=== PATIENT | female | born 1990 ===

== ENCOUNTER → 2023-06-27 | Outpatient (CLI) | payer SELFPAY | END | disposition home or self-care (01) | LOC: LAB SHORT 18:47 → LAB 18:47 | DX: R30.9 Painful micturition, unspecified (principal) | CPT/HCPCS: 87077; 87086; 87186 ==

== ENCOUNTER → 2023-12-05 | Outpatient (CLI) | payer OTHER ==
[2023-12-05 12:06] LABS: Source, Urine Clean Catch
[2023-12-05 15:00] LABS: Appearance, Urine Hazy (Clear); Bilirubin, Urine Neg (Neg); Blood, Urine Neg (Neg); Color, Urine Yellow (P-Yellow); Glucose Qualitative, Urine Neg (Neg); Ketones, Urine Neg (Neg); Leukocyte Esterase, Urine 2+ (Neg); Nitrite, Urine Neg (Neg); Protein, Urine 1+ (Neg); Urobilinogen, Urine NORM (Normal)
[2023-12-05 15:18] LABS: BASOPHILS ABSOLUTE AUTO 0.03 K/mm3 (0.00-0.23); BASOPHILS PERCENT AUTO 0 % (0-2); EOSINOPHILS ABSOLUTE AUTO 0.13 K/mm3 (0.00-0.68); EOSINOPHILS PERCENT AUTO 1 % (0-6); Hematocrit 33.9 % (33.0-51.0); Hemoglobin 11.2 g/dL (11.5-16.0); IMMATURE GRAN ABSOLUTE AUTO 0.04 K/mm3 (0.00-0.10); IMMATURE GRAN PERCENT AUTO 0 % (0-1); LYMPHOCYTES ABSOLUTE AUTO 1.77 K/mm3 (0.84-5.20); LYMPHOCYTES PERCENT AUTO 19 % (21-46); MONOCYTES ABSOLUTE AUTO 0.38 K/mm3 (0.16-1.47); MONOCYTES PERCENT AUTO 4 % (4-13); Mean Corpuscular HGB 30.4 pg (26.0-34.0); Mean Corpuscular Volume 92 fL (80-100); Mean Platelet Volume 12.2 fL (9.1-12.4); NEUTROPHILS PERCENT AUTO 75 % (41-73); Platelet Count 161 K/mm3 (150-400); RDW Coefficient Variation 12.6 % (11.7-14.2); RDW Standard Deviation 41.3 fL (35.1-46.3); Red Blood Cell Count 3.69 M/mm3 (3.80-5.20); White Blood Cell Count 9.25 K/mm3 (4.00-11.30)
[2023-12-05 15:30] LABS: Amorphous Light (0-Heavy); Bacteria Mod /hpf; Squamous Epithelial Cells Few /hpf (Few)
[2023-12-05 15:31] LABS: Mucus Light (0-Heavy)
[2023-12-06 20:08] LABS: HEPATITIS C AB CIA INTERP Negative (Negative); HEPATITIS C ANTIBODY CIA INDEX 0.09 IV
[2023-12-07 11:25] LABS: HIV 1,2 COMBO ANTIGEN/ANTIBODY Negative (Negative)
[2023-12-07 12:46] LABS: HEPATITIS B SURFACE ANTIGEN Negative (Negative)
== END | disposition home or self-care (01) ==
LOC: LAB 12:04 → LAB SHORT 12:04
PROVIDERS: Registered Nurse Community Health
DX: Z34.91 Encounter for supervision of normal pregnancy, unspecified, first trimester (principal)
CPT/HCPCS: 81001; 84443; 86803; 87086; 87340; 87389

== ENCOUNTER → 2023-12-13 | Outpatient (CLI) | payer OTHER ==
[2023-12-13 18:46] LABS: Hematocrit 33.1 % (33.0-51.0); Hemoglobin 10.8 g/dL (11.5-16.0)
[2023-12-16 19:43] LABS: APTIMA MEDIA TYPE Urine; C. TRACHOMATIS BY TMA Negative (Negative); N. GONORRHOEAE BY TMA Negative (Negative); SPECIMEN SOURCE Urine
== END ==
LOC: LAB SHORT 17:15 → LAB 17:15
PROVIDERS: Registered Nurse Community Health
DX: O09.32 Supervision of pregnancy with insufficient antenatal care, second trimester (principal); Z3A.00 Weeks of gestation of pregnancy not specified
CPT/HCPCS: 82950; 85014; 85018; 87491; 87591

== ENCOUNTER → 2024-02-20 | Outpatient (CLI) | payer OTHER ==
[~2024-02-20] MED LIST: PANT20 PO; PRENATAL TABLE1 EAC2 PO
== END | disposition home or self-care (01) ==
LOC: LAB SHORT 17:42 → LAB 17:42
DX: O09.523 Supervision of elderly multigravida, third trimester (principal)
CPT/HCPCS: 87081; 87150

== ENCOUNTER 2024-03-01 12:35 | Inpatient (IN) | payer OTHER ==
[2024-03-01] VITALS (11 sets, daily range): BP systolic 115–149; BP diastolic 68–82
[~2024-03-01] VITALS: Ht 162.6 cm; Wt 71.2 kg
[2024-03-01] MEDS ORDERED: Methylergonovine Maleate 0.2MG / ML 1ML Amp ONE (12:47)
[2024-03-01] MEDS ORDERED: LR Oxytocin 20 Units 1,000 ML IV SCH ×2 (13:05→14:10)
[2024-03-01] MEDS ORDERED: Methylergonovine Maleate 0.2MG / ML 1ML Amp IM PRN ×2 (13:05→14:05)
[2024-03-01] MEDS ORDERED: Benzocaine Topical Anesthetic Spray 60GM TOP PRN ×2 (13:10→14:15)
[2024-03-01] MEDS ORDERED: Acetaminophen 325 MG TABLET PO PRN ×2 (13:10→14:10)
[2024-03-01] MEDS ORDERED: Misoprostol 200 MCG Tab PR PRN ×2 (13:10→14:05)
[2024-03-01] MEDS ORDERED: Docusate Sodium 100 MG Cap PO PRN ×2 (13:10→14:10)
[2024-03-01] MEDS ORDERED: Lactated Ringer's 1,000 ML IV SCH ×2 (13:10→14:10)
[2024-03-01] MEDS ORDERED: Witch Hazel/Glycerin PADS TOP PRN ×2 (13:10→14:15)
[2024-03-01] MEDS ORDERED: Ibuprofen 400 MG Tab PO PRN ×2 (13:10→14:15)
[2024-03-01] MEDS ORDERED: Ketorolac Tromethamine 30mg Vial IV PRN ×2 (13:20→15:00)
[2024-03-01] MEDS ORDERED: Oxytocin 10 Unit / ML Vial IM ONE ×3 (13:20→20:38)
[2024-03-01] MEDS ORDERED: PRENATAL TABLE1 EAC2 PO (14:02)
[2024-03-01] MEDS ORDERED: PANT20 PO (14:03)
[2024-03-01] MEDS ORDERED: Measles/Mumps/Rubella Vaccine 0.5 ML Vial SC SCH (14:05)
[2024-03-01] MEDS ORDERED: OxyCODONE 5 mg/Acetamin 325 mg TABLET PO PRN (14:10)
[2024-03-01] MEDS ORDERED: Diphth,Pertuss(Acell),Tet Vac 0.5 ML VIAL IM ONE (14:15)
[2024-03-01] MEDS ORDERED: Acetaminophen/Codeine 300-30 mg PO PRN (14:15)
[2024-03-01] MEDS ORDERED: Rho(D) Immune Globulin 300 MCG / SYR IM SCH (14:15)
[2024-03-01] MEDS ORDERED: Ketorolac Tromethamine 30mg Vial IV ONE (15:00)
--- NOTE | 2024-03-01 15:45 | NUR ---
1530: ASSUME PT CARE. PT UP TO SHOWER, VOIDED. PT DENIES PAIN. R/T BED TO REST. S/O AT BEDSIDE
[2024-03-01] MEDS ORDERED: Bupivacaine 0.5% HCl 5 MG/ML 30MLVIAL EPI ONE (20:38)
[2024-03-02 00:59] VITALS: BP 121/58
[2024-03-02 04:11] VITALS: BP 110/69
[2024-03-02 05:42] LABS: Hematocrit 35.7 % (33.0-51.0); Hemoglobin 11.7 g/dL (11.5-16.0); Mean Corpuscular HGB 29.3 pg (26.0-34.0); Mean Corpuscular HGB Conc 32.8 g/dL (31.5-36.5); Mean Corpuscular Volume 89 fL (80-100); Platelet Count 107 K/mm3 (150-400); RDW Coefficient Variation 13.1 % (11.7-14.2); RDW Standard Deviation 42.6 fL (35.1-46.3); White Blood Cell Count 11.61 K/mm3 (4.00-11.30)
[2024-03-02 08:44] VITALS: BP 122/69
--- NOTE | 2024-03-02 08:51 | NUR ---
PROVIDER AT BEDSIDE. COMMUNICATING WELL WITH PT. PT DENIES PAIN. BF NB WELL. NO QUESTIONS OR CONCERNS AT THIS TIME. PLAN D/C HOME TODAY.
[2024-03-02] MEDS ORDERED: Prenatal Vit/FE Fumarate/FA 1 Tab PO SCH ×2 (09:00)
[2024-03-02 12:51] VITALS: BP 121/70
--- NOTE | 2024-03-02 12:56 | NUR ---
pediatrian using interpretter phone to communicate with pt. watch dial stoner number is [phone]. pediatrian discussed d/c concerns for nb and plan.
[2024-03-02 16:14] VITALS: BP 107/67
--- NOTE | 2024-03-02 17:25 | NUR ---
PT PREFERS TO COMMUNICATE VIA [employer] TRANSLATE VS SATELLITE COMMUNICATIONS OPERATOR PHONE. D/C INSTRUCTIONS DISCUSSED AND SIGNED. PT HAS NO FURTHER QUESTIONS. DISCUSSED BOARDER STATUS. PT VERBALIZES UNDERSTANDING. DISCUSSED WITH THE MOM THE REASONS FOR OBSERVING NB OVERNIGHT. MOM VERBALIZES UNDERSTANDING.
--- NOTE | 2024-03-02 17:58 | NUR ---
d/c to boarder status
== END 2024-03-02 18:10 | disposition home or self-care (01) | DRG 807 ==
LOC: OBS 12:35 → BC 12:35 → OBS 12:47 → BC 12:49
PROVIDERS: ADMIT Registered Nurse Community Health
PROC: 10E0XZZ Delivery of Products of Conception, External Approach (ICD-10-PCS; principal; 2024-03-01)
PROC: 0KQM0ZZ Repair Perineum Muscle, Open Approach (ICD-10-PCS; 2024-03-01)
DX: O99.62 Diseases of the digestive system complicating childbirth (principal); Z37.0 Single live birth; O70.1 Second degree perineal laceration during delivery; Z3A.38 38 weeks gestation of pregnancy; K21.9 Gastro-esophageal reflux disease without esophagitis; Z79.899 Other long term (current) drug therapy
CPT/HCPCS: 36415; 59025; 85027; A9270; J2210; J2590